=== PATIENT | female | born 1985 | race Two or more races ===

== ENCOUNTER 2019-10-21 12:25 | Emergency (ER) | payer OTHER ==
[2019-10-21] MEDS ORDERED: LIDOCAINE 5% (700 MG) TRANSDERMAL ADH..PATCH TP ONE (13:00)
[2019-10-21] MEDS ORDERED: ACETAMINOPHEN 325 MG TABLET PO ONE (13:00)
[2019-10-21 14:16] LABS: APPEARANCE,URINE CLEAR; BILIRUBIN,URINE NEGATIVE (NEGATIVE); COLOR,URINE STRAW; GLUCOSE, URINE NEGATIVE (NEGATIVE); KETONES,URINE NEGATIVE (NEGATIVE); LEUKOCYTE ESTERASE,URINE NEGATIVE (NEGATIVE); NITRITE,URINE NEGATIVE (NEGATIVE); PROTEIN,URINE NEGATIVE (NEGATIVE); URINE SPECIFIC GRAVITY 1.014; UROBILINOGEN,URINE NEGATIVE mg/dL (<2.0)
--- NOTE | 2019-10-21 14:20 | ER Document Report ---
HPI - HPI Patient complains to provider of: Right lower back pain Time Seen by Provider: 10/21/19 12:51 Onset/Duration: Persistent Quality of pain: Achy Pain Level: 5 Context: Patient presents stating that she fell down 3 steps 5 days ago injuring the right side of her lower back. Patient was seen in urgent care and had x-rays performed that did not show any fracture several days ago. Patient states she was prescribed steroids and a muscle relaxer but she stopped the medication as she felt she was having side effects from the steroids and muscle x-ray. Patient states that she felt like naproxen was too strong that was able to take Motrin without difficulty. Patient denies any new injury. Patient denies any hematuria or dysuria symptoms. Patient denies any radiculopathy or paresthesia. Associated Symptoms: Other - Right lower back pain Exacerbated by: Movement Relieved by: Denies Similar symptoms previously: No Recently seen / treated by doctor: Yes - ROS ROS below otherwise negative: Yes Systems Reviewed and Negative: Yes All other systems reviewed and negative - CONSTITUTIONAL Constitutional: DENIES: Fever, Chills - NEURO Neurology: DENIES: Weakness - GASTROINTESTINAL Gastrointestinal: DENIES: Abdominal Pain, Nausea, Patient vomiting - URINARY Urinary: DENIES: Dysuria, Urgency, Frequency - REPRODUCTIVE Reproductive: DENIES: : - MUSCULOSKELETAL Musculoskeletal: REPORTS: Back Pain - DERM Skin Color: Normal Skin Problems: None Past Medical History - General Information source: Patient - Social History Smoking Status: Never Smoker Chew tobacco use (# tins/day): No Frequency of alcohol use: None Drug Abuse: None Lives with: Family Family History: Reviewed & Not Pertinent Patient has suicidal ideation: No Patient has homicidal ideation: No - Medical History Medical History: Negative Surgical Hx: Negative Vertical Provider Document - CONSTITUTIONAL Agree With Documented VS: Yes Exam Limitations: No Limitations General Appearance: WD/WN, No Apparent Distress - INFECTION CONTROL TRAVEL OUTSIDE OF THE [place] IN LAST 30 DAYS: Yes - HEENT HEENT: Atraumatic, Normocephalic - NECK Neck: Normal Inspection, Supple - RESPIRATORY Respiratory: Breath Sounds Normal, No Respiratory Distress - CARDIOVASCULAR Cardiovascular: Regular Rate, Regular Rhythm - GI/ABDOMEN Gastrointestinal: Abdomen Soft - BACK Back: CVA Tenderness-Right Notes: Right lumbar paraspinal muscle tenderness, no overlying ecchymosis or abrasions - MUSCULOSKELETAL/EXTREMETIES Musculoskeletal/Extremeties: MAELAINEKERA - NEURO Level of Consciousness: Awake, Alert, Appropriate Motor/Sensory: No Motor Deficit - DERM Integumentary: Warm, Dry, No Rash Course - Re-evaluation Re-evalutation: 10/21/19 14:34 Attempted to E scribe Percocet as patient states this is only medication that she is taken in the past that she didn't have adverse reactions to. Provider was having IT issue as prescription would not transmit. Hard copy of prescrip tion was then printed and patient was advised that she should the pharmacy contact the hospital if she has any difficulty getting prescription filled. The patient presents with low back pain without signs of spinal cord compression, cauda equina syndrome, infection, aneurysm, or other serious etiology. The patient is neurologically intact. Given the extremely risk of these diagnoses further testing and evaluation for these possibilities does not appear to be indicated at this time. Patient has been instructed to return if the symptoms worsen or change in any way. - Vital Signs Vital signs: Temp Pulse Resp BP Pulse Ox 98.0 F 77 16 107/53 L 98 10/21/19 12:37 10/21/19 12:37 10/21/19 12:37 10/21/19 12:37 10/21/19 12:37 Discharge - Discharge Clinical Impression: Low back pain Qualifiers: Chronicity: acute Back pain laterality: right Sciatica presence: without sciatica Qualified Code(s): M54.5 - Low back pain Condition: Stable Disposition: HOME, SELF-CARE Instructions: Ice Packs ([facility]), Low Back Pain ([facility]), Warm Packs ([facility]) Additional Instructions: Return immediately for any new or worsening symptoms Followup with your primary care provider, call tomorrow to make a followup appointment You may take Tylenol [id number] to help with pain symptoms Prescriptions: Lidocaine [Lidoderm 5% (700 mg) Transdermal Patch] 1 patch TP DAILY PRN #10 adh..patch PRN Reason: Oxycodone HCl/Acetaminophen [Percocet 5-325 mg Tablet] 1 tab PO ASDIR PRN #15 tablet PRN Reason: Referrals: VERÓNICA PARSON MD [ACTIVE STAFF] - Follow up tomorrow
[2019-10-21 14:27] VITALS: BP 108/64
== END 2019-10-21 14:39 | disposition home or self-care (01) ==
LOC: ER 12:25
DX: M54.5 Low back pain (principal)
CPT/HCPCS: 51701; 81001; 81025; 99283